=== PATIENT | male | born 1950 | race Caucasian/White ===

== ENCOUNTER 2017-03-20 06:13 | Day surgery (SDC) | payer MEDICAID, MEDICARE ==
[2017-03-20] MEDS ORDERED: Lactated Ringers 1,000 ML IV SCH (07:00)
[2017-03-20] MEDS ORDERED: ceFAZolin 2 GM in Premix Bag 1 BAG IV ONE (07:26)
[2017-03-20] MEDS ORDERED: fentaNYL 100 MCG/2 ML SDV ONE (07:40)
[2017-03-20] MEDS ORDERED: Midazolam 1 MG/ML 2 ML SDV ONE (07:40)
[2017-03-20] MEDS ORDERED: Propofol 200 MG/20 ML SDV ONE ×2 (07:40→08:09)
[2017-03-20 09:26] VITALS: BP 130/73
--- NOTE | 2017-03-20 12:51 | OR ---
DATE OF PROCEDURE: 03/20/2017 PREOPERATIVE DIAGNOSIS: History of adenomatous colon polyps. POSTOPERATIVE DIAGNOSIS: Small transverse and right colon polyps. PROCEDURE: Colonoscopy to the cecum with biopsy, resection of two small colon polyps. SURGEON: Justin Espinoza MD. ANESTHESIA: IV anesthesia with monitored anesthesia care. INDICATION: This 67-year-old white male is referred for colonoscopy because of a history of adenomatous colon polyps. He says his last colonoscopic exam was done three years ago. I counseled him for the procedure including risks and alternatives, and he gave his informed consent to proceed. DESCRIPTION OF PROCEDURE: The patient was placed in the left lateral decubitus position. IV anesthesia was administered by the Anesthesia Service. Time-out was held. A rectal exam was performed, which was unremarkable. The flexible video Olympus colonoscope was introduced through his anus, up his rectum, and out his colon all way to the cecum. To accomplish this, we had to apply abdominal compression in both the left lateral and supine positions. En route, in the transverse colon, we saw a small polyp, which was removed with the biopsy forceps. We saw another in the right colon, which was removed with the biopsy forceps. Once the cecum was reached, the scope was slowly withdrawn, examining the mucosa throughout. No additional mucosal abnormalities were noted. The scope was retroflexed in the rectum with the distal rectum appearing unremarkable. The scope was straightened and removed. He tolerated the procedure well. Justin Espinoza MD /[id number] MTDD
== END 2017-03-20 09:48 | disposition home or self-care (01) ==
LOC: JP.SDS 06:13
PROVIDERS: ATTEND Surgery
DX: Z12.11 Encounter for screening for malignant neoplasm of colon (principal); K63.5 Polyp of colon; F17.210 Nicotine dependence, cigarettes, uncomplicated; E66.9 Obesity, unspecified; M19.90 Unspecified osteoarthritis, unspecified site; Z98.890 Other specified postprocedural states; Z86.010 Personal history of colon polyps
CPT/HCPCS: 45380; 88305; J0690; J2250; J2704; J3010; J7120

== ENCOUNTER 2021-07-15 05:14 | Inpatient (IN) | payer MEDICARE ==
--- NOTE | 2021-07-15 06:05 | CRLCT ---
For Patients: As a result of the Century Cures Act, medical imaging exams and procedure reports are released immediately into your electronic medical record. You may view this report before your referring provider. If you have questions, please contact your health care provider. INDICATION: Epigastric pain, no bowel movement in 3 days TECHNIQUE: CT Abdomen and pelvis without i.v. contrast. Coronal and sagittal reformats were obtained. Iterative reconstruction was used to minimize beam hardening artifacts. COMPARISON: 05/24/2021 FINDINGS: Lower chest: Unremarkable. Liver: Multiple hepatic cysts present with the largest measuring 3.4 cm in diameter. Spleen: There is a nonspecific low-density lesion present within the spleen measuring 1.2 cm and may represent a splenic cyst, better characterized on prior examination. Pancreas: Unremarkable. Gallbladder: Unremarkable. Kidney: Unremarkable. No kidney or ureteral stones or obstruction seen. Adrenal: Unremarkable. Bowel: Small, stable sliding type gastric hiatal hernia (type IV) is present. There is a cluster of small bowel loops present in the right lower quadrant that have a new tethered, kinked appearance with radiating mesenteric vessels. The appendix is not identified. Vascular: Unremarkable. Lymph: Unremarkable. Peritoneum: Unremarkable. No pneumoperitoneum is seen. No significant ascites is noted. Pelvis: Unremarkable. Soft tissue: Unremarkable. Bone: The left bipolar hip prosthesis is noted. A severe chronic compression deformity of L1 is noted without interval change. IMPRESSION: 1. There is a cluster of small bowel loops present in the right lower quadrant that have a new tethered, kinked appearance with radiating mesenteric vessels. Findings are suggestive of a nonobstructing internal hernia. Dictated by Caesar Huddleston MD @ 07/15/2021 6:05:00 AM Please note that all CT scans at this facility use dose modulation, iterative reconstruction, and/or weight-based dosing when appropriate to reduce radiation dose to as low as reasonably achievable. Dictated by: Caesar Huddleston MD @ 07/15/2021 06:05:02 (Electronically Signed)
--- NOTE | 2021-07-15 06:40 | EDM.PDOC ---
ED HPI GENERAL MEDICAL PROBLEM - General Chief Complaint: Abdominal Pain Stated Complaint: BACK PAIN, NO BOWEL MOVEMENT Time Seen by Provider: 07/15/21 05:23 Source of Information: Reports: Patient, Family History Limitations: Reports: No Limitations - History of Present Illness INITIAL COMMENTS - FREE TEXT/NARRATIVE: Ángel is a 71-year-old male who presents to the ED with his daughter for evaluation of epigastric abdominal pain radiating through to the back that worsens with eating. The patient also reportedly has not had a bowel movement in over 3 days. He denies any nausea or vomiting, change in appetite, fever, chills. The patient has only had a previous abdominal surgery for a Sae fundoplication which was done years ago. The patient denies any loss of taste or smell, he does complain of pain radiating through to the back and denies any trauma that could be attributed to that. Abdomen Pain Score (Numeric/FACES): 8 - Related Data Allergies Allergy/AdvReac Type Severity Reaction Status Date / Time TAPE Allergy Unknown Blisters Uncoded 07/15/21 05:41 Home Meds: Home Meds Omeprazole 40 mg PO DAILY 05/13/15 [History] Acetaminophen/HYDROcodone [[place] 325-10 MG] 1 tab PO Q4H PRN 03/18/17 [History] Diclofenac Sodium [Voltaren] 75 mg PO BIDMEALS 03/18/17 [History] Sennosides/Docusate Sodium [Senna-S] 2 tab PO DAILY 03/18/17 [History] Past Medical History HEENT History: Reports: Impaired Vision Cardiovascular History: Reports: None Respiratory History: Reports: None Gastrointestinal History: Reports: Colon Polyp, Gastritis, GERD Genitourinary History: Reports: None Musculoskeletal History: Reports: Arthritis, Back Pain, Chronic, Fracture, Neck Pain, Chronic, Osteoarthritis, RA Neurological History: Reports: None Psychiatric History: Reports: None Endocrine/Metabolic History: Reports: Obesity/BMI 30+ Hematologic History: Reports: Anemia, Blood Transfusion(s), Iron Deficiency Immunologic History: Reports: None Oncologic (Cancer) History: Reports: None Dermatologic History: Reports: None - Infectious Disease History Infectious Disease History: Reports: Chicken Pox - Past Surgical History Head Surgeries/Procedures: Reports: None HEENT Surgical History: Reports: Oral Surgery Cardiovascular Surgical History: Reports: None Respiratory Surgical History: Reports: None GI Surgical History: Reports: Colonoscopy, EGD, Hernia, Abdominal Male Surgical History: Reports: None Endocrine Surgical History: Reports: None Neurological Surgical History: Reports: None Musculoskeletal Surgical History: Reports: Hip Replacement, Knee Replacement, Other (See Below) Other Musculoskeletal Surgeries/Procedures:: bilat knee L 2012 r knee06/2017 Oncologic Surgical History: Reports: None Dermatological Surgical History: Reports: None Social & Family History - Family History Family Medical History: No Pertinent Family History - Tobacco Use Tobacco Use Status *Q: Current Every Day Tobacco User Years of Tobacco use: 55 Packs/Tins Daily: 1 - Caffeine Use Caffeine Use: Reports: Coffee - Recreational Drug Use Recreational Drug Use: No ED ROS GENERAL - Review of Systems Review Of Systems: See Below Constitutional: Reports: No Symptoms HEENT: Reports: No Symptoms Respiratory: Reports: No Symptoms Cardiovascular: Reports: No Symptoms Endocrine: Reports: No Symptoms GI/Abdominal: Reports: Abdominal Pain (Epigastric rating through to the back), Constipation (No bowel movement in the last 3 days the patient has also been unable to sleep due to the abdominal pain and cramping.). Denies: Nausea, Vom iting : Reports: No Symptoms Musculoskeletal: Reports: Back Pain Skin: Reports: No Symptoms Neurological: Reports: No Symptoms Psychiatric: Reports: No Symptoms Hematologic/Lymphatic: Reports: No Symptoms ED EXAM, GI/ABD - Physical Exam Exam: See Below Exam Limited By: No Limitations General Appearance: Alert, Anxious, Mild Distress, Obese Eyes: Bilateral: EOMI Throat/Mouth: Normal Inspection, Normal Oropharynx, Normal Voice, No Airway Compromise Head: Atraumatic, Normocephalic Neck: Normal Inspection, Supple Respiratory/Chest: No Respiratory Distress, Lungs Clear, Normal Breath Sounds Cardiovascular: Normal Peripheral Pulses, Regular Rate, Rhythm, No Murmur GI/Abdominal Exam: Soft, Distended (Marked distention), Guarding, Tender (Epigastric moderate pain generalized mild to moderate pain), Abnormal Bowel Sounds (Diminished bowel sounds). No: Rebound Back Exam: Normal Inspection Extremities: Normal Inspection, Normal Range of Motion Neurological: Alert, Oriented, Normal Cognition, No Motor/Sensory Deficits Psychiatric: Normal Affect, Normal Mood Skin Exam: Warm, Dry Course - Vital Signs Last Recorded V/S: Last Vital Signs Temp 36.3 C 07/15/21 05:42 Pulse 82 07/15/21 05:42 Resp 14 07/15/21 05:42 BP 120/78 07/15/21 05:42 Pulse Ox 99 07/15/21 05:42 - Orders/Labs/Meds Labs: Laboratory Tests 07/15/21 07/15/21 07/15/21 Range/Units 05:34 05:45 05:45 WBC 3.8 L (4.5-11.0) K/uL RBC 5.09 (4.30-5.90) M/uL Hgb 13.7 (12.0-15.0) g/dL Hct 42.4 (40.0-54.0) % MCV 83 (80-98) fL MCH 27 (27-31) pg MCHC 32 (32-36) % Plt Count 174 (150-400) K/uL Neut % (Auto) 59.5 (36-66) % Lymph % (Auto) 26.8 (24-44) % [place] % (Auto) 13.2 H (2-6) % Eos % (Auto) 0.0 L (2-4) % Baso % (Auto) 0.5 (0-1) % Sodium 137 L (140-148) mmol/L Potassium 3.6 (3.6-5.2) mmol/L Chloride 102 (100-108) mmol/L Carbon Dioxide 25 (21-32) mmol/L Anion Gap 13.6 (5.0-14.0) mmol/L BUN 15 (7-18) mg/dL Creatinine 0.9 (0.8-1.3) mg/dL Est Cr Clr Drug Dosing 68.92 mL/min Estimated GFR (MDRD) > 60 (>60) Glucose 164 H (74-106) mg/dL Lactic Acid 1.4 (0.4-2.0) mmol/L Calcium 8.4 L (8.5-10.1) mg/dL Total Bilirubin 0.4 (0.2-1.0) mg/dL AST 24 (15-37) U/L ALT 24 (12-78) U/L Alkaline Phosphatase 74 (46-116) U/L Total Protein 6.6 (6.4-8.2) g/dL Albumin 3.5 (3.4-5.0) g/dL Globulin 3.1 (2.3-3.5) g/dL Albumin/Globulin Ratio 1.1 L (1.2-2.2) Lipase 114 (73-393) U/L - Radiology Interpretation Free Text/Narrative:: I reviewed the images of the CT of the abdomen without contrast, as well as the report. The report is as follows: FINDINGS: Lower chest: Unremarkable. Liver: Multiple hepatic cysts present with the largest measuring 3.4 cm in diameter. Spleen: There is a nonspecific low-density lesion present within the spleen measuring 1.2 cm and may represent a splenic cyst, better characterized on prior examination. Pancreas: Unremarkable. Gallbladder: Unremarkable. Kidney: Unremarkable. No kidney or ureteral stones or obstruction seen. Adrenal: Unremarkable. Bowel: Small, stable sliding type gastric hiatal hernia (type IV) is present. There is a cluster of small bowel loops present in the right lower quadrant that have a new tethered, kinked appearance with radiating mesenteric vessels. The appendix is not identified. Vascular: Unremarkable. Lymph: Unremarkable. Peritoneum: Unremarkable. No pneumoperitoneum is seen. No significant ascites is noted. Pelvis: Unremarkable. Soft tissue: Unremarkable. Bone: The left bipolar hip prosthesis is noted. A severe chronic compression deformity of L1 is noted without interval change. IMPRESSION: 1. There is a cluster of small bowel loops present in the right lower quadrant that have a new tethered, kinked appearance with radiating mesenteric vessels. Findings are suggestive of a nonobstructing internal hernia. Dictated by Caesar Huddleston MD @ 07/15/2021 6:05:00 AM - Re-Assessments/Exams Free Text/Narrative Re-Assessment/Exam: 07/15/21 06:34 I reviewed the patient's labs showing a normal leukocyte count of 3.8, hemoglobin of 13.7 and platelet count 174,000. The patient's comprehensive metabolic panel shows a sodium 137, potassium 3.6, chloride 102, bicarbonate of 25, BUN of 15 with a creatinine of 0.9 and a glucose of 164. Venous lactic acid is 1.4 and lipase is 114. Calcium is 8.4 with an albumin of 3.5. CT of the abdomen and pelvis was performed showing what appears to be a small cluster of small bowel in the right lower quadrant that is tethered with radiating mesenteric vessels consistent with an internal hernia that is nonobstructing. I discussed the case with Dr. Powell who recommends admission of the patient with an NG tube, bowel stimulation, and this will usually allow this to resolve. He recommended contacting the hospitalist to admit the patient for this care. I discussed the case with Dr. Remy to arrange for admission of the patient. 07/15/21 07:04 Dr. Powell called back and is planning on taking the patient to the operating room this morning. This was discussed with the patient who is in agreement with this plan. Departure - Departure Time of Disposition: 06:36 Disposition: Admitted As Inpatient 67 Clinical Impression: Partial small bowel obstruction, Malrotation of intestine with internal herniation - Discharge Information Referrals: Carlos Remy MD [Primary Care Provider] - Sepsis Event Note (ED) - Evaluation Sepsis Screening Result: No Definite Risk - Focused Exam Vital Signs: Vital Signs Temp Pulse Resp BP Pulse Ox 07/15/21 05:42 36.3 C 82 14 120/78 99 - Problem List & Annotations (1) Malrotation of intestine with internal herniation SNOMED Code(s): 005846004 Code(s): Q43.3 - CONGENITAL MALFORMATIONS OF INTESTINAL FIXATION; K46.9 - UNSPECIFIED ABDOMINAL HERNIA WITHOUT OBSTRUCTION OR GANGRENE Status: Acute Priority: Medium Current Visit: Yes (2) Partial small bowel obstruction SNOMED Code(s): 681140848 Code(s): K56.600 - PARTIAL INTESTINAL OBSTRUCTION, UNSPECIFIED TO CAUSE Status: Acute Priority: Medium Current Visit: Yes - Problem List Review Problem List Initiated/Reviewed/Updated: Yes
[2021-07-15] MEDS ORDERED: HYDROmorphone 1 MG/ML Syringe IVPUSH ONE (07:05)
[2021-07-15] MEDS ORDERED: Ondansetron 4 MG/2 ML SDV IVPUSH ONE (07:05)
[2021-07-15] MEDS ORDERED: Sodium Chloride 0.9% 10 ML Syringe FLUSH PRN (07:05)
[2021-07-15] MEDS ORDERED: Ondansetron 4 MG/2 ML SDV IV PRN (07:24)
[2021-07-15 07:28] LABS: CORONAVIRUS COVID-19 NAA POSITIVE (NEGATIVE)
--- NOTE | 2021-07-15 08:11 | HP ---
CHIEF COMPLAINT: Epigastric pain. HISTORY OF PRESENT ILLNESS: A 71-year-old who has had increasing epigastric discomfort over the last 3 days. He has maybe had a little bit of nausea, but no vomiting, but he has not really had much of an appetite, and it does not sound like he has really had much of a bowel movement. No urinary problems. Came into the emergency room. They did a CT scan, which showed cluster of small bowel loops present in the right lower quadrant that have new tethered kinked appearance with radiating mesenteric vessels. Findings are suggestive of nonobstructing internal hernia. Dr. Powell, General Surgery was contacted, who wanted me to admit the patient. They are planning on doing surgery this morning. The patient otherwise denies any other complaints at this time. He has had some lower chest pain probably radiating from the abdominal pain which also radiates into his back, but has had no shortness of breath or cough. He has had no fevers or chills. PAST MEDICAL HISTORY: 1. He had left shoulder arthroscopic surgery last spring. 2. Right total knee arthroplasty done in 2017. He has had a hip replacement with revision after fracture of the left hip. 3. Left total knee arthroplasty. 4. Seasonal allergies. 5. Longstanding smoker. 6. Right elbow surgery. 7. Right wrist and multiple right hand surgeries in the past. CURRENT MEDICATIONS: Hydrocodone, he is taking on a regular basis; diclofenac 75 mg b.i.d., omeprazole 40 mg daily, senna S 2 tablets daily. ALLERGIES: TAPE. SOCIAL HISTORY: Still smoking about a pack of cigarettes a day and has for 51 years with no desire to quit. FAMILY HISTORY: Brother with colon cancer. Mother with stomach cancer. REVIEW OF SYSTEMS: Denies headaches, vision changes, upper respiratory symptoms. No fever or chills. He does have some lower chest pain that may be radiating from the epigastric area. No shortness of breath, cough. A little bit of nausea without vomiting. No diarrhea. Has not really had much of a bowel movement and has had problems with constipation. No urinary problems reported. No swelling in his legs. No skin problems reported. No neurologic complaints reported. PHYSICAL EXAMINATION: VITAL SIGNS: Weight 97 kg, temperature 36.3, pulse 69 to 82, blood pressure 120/78, respirations 14, O2 saturation 99% on room air. GENERAL: The patient is alert and oriented x3. HEENT: Pharynx: No dentition, no dentures, was otherwise unremarkable. NECK: Supple. No adenopathy, thyromegaly, JVD, or carotid bruits. LUNGS: Clear. HEART: Regular without murmurs. ABDOMEN: Soft. He did have significant upper abdominal epigastric pain. There is no mass or organomegaly palpated. No distention. Few bowel sounds heard. EXTREMITIES: No edema. SKIN: Negative. NEUROLOGIC: Cranial nerves II through XII grossly intact. He is alert and oriented. Mental status was normal. LABORATORY DATA: Coronavirus disease 2019 was positive. Influenza and RSV were negative. White count 3.8, hemoglobin 13.7, platelets 174,000. Sodium 137, potassium 3.6, chloride 102, BUN is 15, creatinine 0.9, glucose 164. Lactic acid was normal at 1.4. Calcium was low at 8.4. Hepatic function was normal. Lipase was normal at 114. EKG is pending. CT scan showed the question of small bowel loops present in the right lower quadrant with new tethered, kinked appearance with radiating mesenteric vessels. Findings suggestive of nonobstructing internal hernia. ASSESSMENT: Internal hernia. PLAN: Plan is for him to have surgical repair of this by Dr. Powell this morning. ER doctor did order NG tube. The patient does have positive coronavirus disease but has no symptoms for it, just on routine testing. We will admit inpatient since he is having surgery. The patient has received IV Zofran and Dilaudid, which we will continue. N.p.o. with NG tube. Transfer his care to the hospitalist service also along with Dr. Powell. Carlos Remy MD /[id number]
[2021-07-15] MEDS: HYDROmorphone 1 MG/ML Syringe IVPUSH PRN ×2 (09:13→09:25)
[2021-07-15] MEDS: Sodium Chloride 0.9% 1,000 ML IV SCH ×2 (09:13→15:44)
[2021-07-15] MEDS ORDERED: fentaNYL 250 MCG/5 ML SDV ONE (09:14)
[2021-07-15] MEDS ORDERED: Glycopyrrolate 0.2 MG/ML 5 ML MDV ONE (09:15)
[2021-07-15] MEDS ORDERED: Propofol 200 MG/20 ML SDV ONE (09:15)
[2021-07-15] MEDS ORDERED: Dexamethasone 4 MG/ML SDV ONE (09:15)
[2021-07-15] MEDS ORDERED: Ondansetron 4 MG/2 ML SDV ONE (09:15)
[2021-07-15] MEDS ORDERED: Neostigmine Methylsulfate 1 MG/ML 5 ML Syringe ONE (09:15)
[2021-07-15] MEDS ORDERED: metroNIDAZOLE/Normal Saline 500 MG in Premix Bag 1 BAG IV ONE (09:15)
[2021-07-15] MEDS ORDERED: ceFAZolin 2 GM in Premix Bag 1 BAG IV ONE (09:15)
[2021-07-15] MEDS ORDERED: Rocuronium 50 MG/5 ML Vial ONE (09:15)
[2021-07-15] MEDS ORDERED: Albuterol/Ipratropium 3.0-0.5 MG/3 ML Neb Soln ONE (10:27)
[2021-07-15] MEDS ORDERED: Albuterol/Ipratropium 3.0-0.5 MG/3 ML Neb Soln NEB ONE (10:30)
[2021-07-15] MEDS ORDERED: diphenhydrAMINE 50 MG/ML SDV IVPUSH PRN (10:51)
[2021-07-15] MEDS ORDERED: Acetaminophen/HYDROcodone 325-10 MG Tab PO PRN (10:51)
[2021-07-15] MEDS ORDERED: Acetaminophen 325 MG Tab PO PRN (10:51)
[2021-07-15] MEDS ORDERED: hydrOXYzine HCL 100 MG/2 ML SDV IM PRN (10:51)
[2021-07-15] MEDS ORDERED: Docusate Sodium 100 MG Cap PO PRN (10:51)
[2021-07-15] MEDS ORDERED: Benzocaine/Cetylpyridinium/Menthol Lozenge MUCMEM PRN (10:51)
[2021-07-15] MEDS ORDERED: Promethazine 25 MG/ML SDV IM PRN (10:51)
[2021-07-15] MEDS ORDERED: fentaNYL 100 MCG/2 ML SDV IVPUSH PRN (10:54)
[2021-07-15] MEDS ORDERED: ceFAZolin 2 GM in Sodium Chloride 0.9% 100 ML IV SCH (11:00)
[2021-07-15] MEDS ORDERED: Bupivacaine 0.5%/EPINEPHrine 1:200,000 50 ML MDV ONE (11:52)
[2021-07-15] MEDS: Enoxaparin 40 MG/0.4 ML Syringe SUBCUT SCH (14:13)
[2021-07-15] MEDS: ceFAZolin 2 GM in Premix Bag 1 BAG IV SCH (17:20)
--- NOTE | 2021-07-15 19:11 | CONS ---
DATE OF SERVICE: 07/15/2021 REFERRING PHYSICIAN: CONSULTING PHYSICIAN: Elder Powell MD Consult from Dr. Baxter. REASON FOR CONSULTATION: Abdominal pain. HISTORY OF PRESENT ILLNESS: A 71-year-old male, who presents with an approximately 3-day history of abdominal pain. No nausea, vomiting, shortness of breath, or chest pain. The pain is 1 to 2 on 10 and intermittent. PAST MEDICAL HISTORY: Gastritis, GERD, arthritis, back pain, and multiple orthopedic things with respect to chronic neck pains, fracture, etc. PAST SURGICAL HISTORY: Colonoscopy and hernia repair. SOCIAL HISTORY: He is a smoker. FAMILY HISTORY: Noncontributory. REVIEW OF SYSTEMS: GENERAL: Appropriate for condition. HEENT: No symptoms. RESPIRATORY: Smoker. CARDIOVASCULAR: Smoker. GI: As above. GENITOURINARY: No symptoms. MUSCULOSKELETAL: Chronic back pain. The remainder of the review of systems is reviewed and is negative. PHYSICAL EXAMINATION: GENERAL: The patient is appropriate for condition. VITAL SIGNS: Stable; temperature 97.3, blood pressure 120/78, pulse 82, respirations 14, and 99% on room air. HEENT: Pupils are equal. NECK: Supple. LUNGS: Clear. CARDIOVASCULAR: Regular rhythm and rate. ABDOMEN: Moderately distended. Nontender. No rebound. No guarding. IMAGING: I did review the CT scan, which suggests possibly an internal hernia. ASSESSMENT AND PLAN: To the operating room for a diagnostic laparoscopy. We discussed the risks, benefits, alternatives, and limitations, including possible bowel resection and open surgery. We also discussed that he is a smoker and coronavirus disease positive, and he may get respiratory complications along with other surgical complications, which include respiratory failure and even . The patient was ambivalent about these risks, and they were again repeated a 2nd time to ensure that he understands the seriousness of the situation. He states that he does. These risks, benefits, and alternatives were reiterated twice in clear simple Malay using "layman's terms." Elder Powell MD /[id number]
[2021-07-16] MEDS: Sodium Chloride 0.9% 1,000 ML IV SCH (00:32)
[2021-07-16] MEDS: ceFAZolin 2 GM in Premix Bag 1 BAG IV SCH (00:33)
[2021-07-16] MEDS ORDERED: Polyethylene Glycol 3350 Powder 17 GM Packet PO ONE (09:45)
--- NOTE | 2021-07-16 13:30 | PCM.PN ---
- General Info Date of Service: 07/16/21 Subjective Update: Mr. Quezada has been stable following surgery for repair of incarcerated hernia. Hospitalist service has been asked to follow him because of positive Covid test. He currently has no symptoms of active Covid. Functional Status: Reports: Pain Controlled, Ambulating - Review of Systems General: Reports: No Symptoms Pulmonary: Reports: No Symptoms Cardiovascular: Reports: No Symptoms Gastrointestinal: Reports: Abdominal Pain, Flatus. Denies: Difficulty Swallowing, Hematochezia, Melena, Nausea, Vomiting - Patient Data Vitals - Most Recent: Last Vital Signs Temp 96.2 F L 07/16/21 11:24 Pulse 58 L 07/16/21 11:24 Resp 18 07/16/21 11:24 BP 113/81 07/16/21 11:24 Pulse Ox 98 07/16/21 11:24 Weight - Most Recent: 214 lb 3.2 oz I&O - Last 24 Hours: Intake & Output 07/15/21 07/16/21 07/16/21 22:59 06:59 14:59 Intake Total 1355 1356 760 Output Total 3250 1250 850 Balance -1895 106 -90 Lab Results Last 24 Hours: Laboratory Results - last 24 hr 07/16/21 07/16/21 Range/Units 04:50 04:50 WBC 4.3 L (4.5-11.0) K/uL RBC 4.69 (4.30-5.90) M/uL Hgb 12.7 (12.0-15.0) g/dL Hct 39.9 L (40.0-54.0) % MCV 85 (80-98) fL MCH 27 (27-31) pg MCHC 32 (32-36) % Plt Count 143 L (150-400) K/uL Neut % (Auto) 72.8 H (36-66) % Lymph % (Auto) 17.2 L (24-44) % [place] % (Auto) 10.0 H (2-6) % Eos % (Auto) 0.0 L (2-4) % Baso % (Auto) 0.0 (0-1) % Sodium 140 (140-148) mmol/L Potassium 4.2 (3.6-5.2) mmol/L Chloride 106 (100-108) mmol/L Carbon Dioxide 25 (21-32) mmol/L Anion Gap 9.4 (5.0-14.0) mmol/L BUN 10 (7-18) mg/dL Creatinine 0.9 (0.8-1.3) mg/dL Est Cr Clr Drug Dosing 68.92 mL/min Estimated GFR (MDRD) > 60 (>60) Glucose 131 H (74-106) mg/dL Calcium 7.9 L (8.5-10.1) mg/dL Med Orders - Current: Current Medications Acetaminophen (Acetaminophen 325 Mg Tab) 650 mg PO Q6H PRN PRN Reason: Pain (mild 1-3) Hydrocodone Bitart/Acetaminophen (Acetaminophen/Hydrocodone 325-10 Mg Tab) 2 tab PO Q4H PRN PRN Reason: Pain (severe 7-10) Alvimopan (Alvimopan 12 Mg Capsule) 12 mg PO BID [facility] Stop: 07/22/21 21:01 Last Admin: 07/16/21 11:21 Dose: 12 mg Documented by: Benzocaine/Menthol (Benzocaine/Cetylpyridinium/Menthol Lozenge) 1 lozenge MUCMEM Q1H PRN PRN Reason: Sore Throat Diphenhydramine HCl (Diphenhydramine 50 Mg/Ml Sdv) 50 mg IVPUSH Q4H PRN PRN Reason: Itching Docusate Sodium (Docusate Sodium 100 Mg Cap) 100 mg PO BID PRN PRN Reason: Constipation Last Admin: 07/16/21 08:19 Dose: 100 mg Documented by: Enoxaparin Sodium (Enoxaparin 40 Mg/0.4 Ml Syringe) 40 mg SUBCUT Q24H TOMAS Last Admin: 07/15/21 14:13 Dose: 40 mg Documented by: Fentanyl (Fentanyl 100 Mcg/2 Ml Sdv) 10 - 30 mcg IVPUSH Q1H PRN PRN Reason: Pain (severe 7-10) Hydromorphone HCl (Hydromorphone 1 Mg/Ml Syringe) 1 mg IVPUSH Q1H PRN PRN Reason: Pain Last Admin: 07/15/21 09:25 Dose: 1 mg Documented by: Hydroxyzine HCl (Hydroxyzine Hcl 100 Mg/2 Ml Sdv) 50 mg IM Q4H PRN PRN Reason: Nausea Sodium Chloride (Normal Saline) 1,000 mls @ 125 mls/hr IV ASDIRECTED [facility] Last Admin: 07/16/21 00:32 Dose: 125 mls/hr Documented by: Ondansetron HCl (Ondansetron 4 Mg/2 Ml Sdv) 4 mg IV Q4H PRN PRN Reason: Nausea/Vomiting Promethazine HCl (Promethazine 25 Mg/Ml Sdv) 25 mg IM Q6H PRN PRN Reason: Nausea Senna/Docusate Sodium (Docusate Sodium/Sennosides 50-8.6 Mg Tab) 1 tab PO BID PRN PRN Reason: Constipation Last Admin: 07/16/21 08:18 Dose: 1 tab Documented by: Sodium Chloride (Sodium Chloride 0.9% 10 Ml Syringe) 10 ml FLUSH ASDIRECTED PRN PRN Reason: Keep Vein Open Last Admin: 07/15/21 07:16 Dose: 10 ml Documented by: Discontinued Medications Albuterol/Ipratropium (Albuterol/Ipratropium 3.0-0.5 Mg/3 Ml Neb Soln) Confirm Administered Dose 3 ml .ROUTE .STK-MED ONE Stop: 07/15/21 10:28 Last Admin: 07/15/21 10:31 Dose: Not Given Documented by: Albuterol/Ipratropium (Albuterol/Ipratropium 3.0-0.5 Mg/3 Ml Neb Soln) 3 ml NEB ONETIME ONE Stop: 07/15/21 10:31 Last Admin: 07/15/21 10:33 Dose: 3 ml Documented by: Bupivacaine HCl/Epinephrine Bitart (Bupivacaine 0.5%/Epinephrine 1:200,000 50 Ml Mdv) Confirm Administered Dose 50 ml .ROUTE .STK-MED ONE Stop: 07/15/21 11:53 Last Admin: 07/15/21 11:35 Dose: 30 ml Documented by: Ropivacaine 48 ml/Dexamethasone 8 mg/Epinephrine HCl 0.4 mg/ Sodium Chloride 29.6 ml 0 ml NERVRT ASDIRECTED [facility] Last Admin: 07/15/21 11:28 Dose: 80 syringe Documented by: Dexamethasone (Dexamethasone 4 Mg/Ml Sdv) Confirm Administered Dose 4 mg .ROUTE .STK-MED ONE Stop: 07/15/21 09:16 Fentanyl (Fentanyl 250 Mcg/5 Ml Sdv) Confirm Administered Dose 250 mcg .ROUTE .STK-MED ONE Stop: 07/15/21 09:15 Glycopyrrolate (Glycopyrrolate 0.2 Mg/Ml 5 Ml Mdv) Confirm Administered Dose 1 mg .ROUTE .STK-MED ONE Stop: 07/15/21 09:16 Hydromorphone HCl (Hydromorphone 1 Mg/Ml Syringe) 1 mg IVPUSH ONETIME ONE Stop: 07/15/21 07:06 Last Admin: 07/15/21 07:16 Dose: 1 mg Documented by: Cefazolin Sodium/Dextrose 2 gm (/ Premix) 50 mls @ 100 mls/hr IV ONETIME ONE Stop: 07/15/21 09:44 Last Admin: 07/15/21 09:28 Dose: 100 mls/hr Documented by: Metronidazole 500 mg/ Premix 100 mls @ 100 mls/hr IV ONETIME ONE Stop: 07/15/21 10:14 Last Admin: 07/15/21 10:03 Dose: 100 mls/hr Documented by: Cefazolin Sodium/Dextrose 2 gm (/ Premix) 50 mls @ 100 mls/hr IV Q8H [facility]OMAS Stop: 07/16/21 01:29 Last Admin: 07/16/21 00:33 Dose: 100 mls/hr Documented by: Neostigmine Methylsulfate (Neostigmine Methylsulfate 1 Mg/Ml 5 Ml Syringe) Confirm Administered Dose 5 mg .ROUTE .STK-MED ONE Stop: 07/15/21 09:16 Ondansetron HCl (Ondansetron 4 Mg/2 Ml Sdv) 4 mg IVPUSH ONETIME ONE Stop: 07/15/21 07:06 Last Admin: 07/15/21 07:15 Dose: 4 mg Documented by: Ondansetron HCl (Ondansetron 4 Mg/2 Ml Sdv) Confirm Administered Dose 4 mg .ROUTE .STK-MED ONE Stop: 07/15/21 09:16 Polyethylene Glycol (Polyethylene Glycol 3350 Powder 17 Gm Packet) 17 gm PO ON ETIME ONE Stop: 07/16/21 09:46 Last Admin: 07/16/21 10:03 Dose: 17 gm Documented by: Propofol (Propofol 200 Mg/20 Ml Sdv) Confirm Administered Dose 200 mg .ROUTE .STK-MED ONE Stop: 07/15/21 09:16 Rocuronium [place] (Rocuronium 50 Mg/5 Ml Vial) Confirm Administered Dose 50 mg .ROUTE .[facility] ONE Stop: 07/15/21 09:16 - Exam Urinary Catheter Total Time: 0Days 21Hours General: Alert, Oriented, Cooperative, Mild Distress Lungs: Clear to Auscultation, Normal Respiratory Effort Cardiovascular: Regular Rate, Regular Rhythm GI/Abdominal Exam: Normal Bowel Sounds, Soft, No Organomegaly, Tender. No: Distended, Guarding, Rigid, Rebound Extremities: Non-Tender, No Pedal Edema - Patient Data Lab Results Last 24 hrs: Laboratory Results - last 24 hr 07/16/21 07/16/21 Range/Units 04:50 04:50 WBC 4.3 L (4.5-11.0) K/uL RBC 4.69 (4.30-5.90) M/uL Hgb 12.7 (12.0-15.0) g/dL Hct 39.9 L (40.0-54.0) % MCV 85 (80-98) fL MCH 27 (27-31) pg MCHC 32 (32-36) % Plt Count 143 L (150-400) K/uL Neut % (Auto) 72.8 H (36-66) % Lymph % (Auto) 17.2 L (24-44) % [place] % (Auto) 10.0 H (2-6) % Eos % (Auto) 0.0 L (2-4) % Baso % (Auto) 0.0 (0-1) % Sodium 140 (140-148) mmol/L Potassium 4.2 (3.6-5.2) mmol/L Chloride 106 (100-108) mmol/L Carbon Dioxide 25 (21-32) mmol/L Anion Gap 9.4 (5.0-14.0) mmol/L BUN 10 (7-18) mg/dL Creatinine 0.9 (0.8-1.3) mg/dL Est Cr Clr Drug Dosing 68.92 mL/min Estimated GFR (MDRD) > 60 (>60) Glucose 131 H (74-106) mg/dL Calcium 7.9 L (8.5-10.1) mg/dL Result Diagrams: 07/16/21 04:50 07/16/21 04:50 Sepsis Event Note - Evaluation Sepsis Screening Result: No Definite Risk - Focused Exam Vital Signs: Vital Signs Temp Pulse Resp BP Pulse Ox 07/16/21 11:24 96.2 F L 58 L 18 113/81 98 07/16/21 07:14 96.4 F L 58 L 18 116/77 95 07/16/21 04:00 96.8 F L 56 L 14 121/76 95 - Problem List Review Problem List Initiated/Reviewed/Updated: Yes - Plan Plan:: ASSESSMENT AND PLAN STATUS POST SURGERY FOR INCARCERATED HERNIA-stable and doing well during the postoperative course -Ongoing care and management per Dr. Powell COVID POSITIVE-positive test on admission, remains asymptomatic concerning Covid infection -Does not currently require specific treatment
--- NOTE | 2021-07-16 13:43 | OR ---
DATE OF PROCEDURE: 07/15/2021 SURGEON: Elder Powell MD PROCEDURES: 1. Diagnostic laparoscopy. 2. Repair of internal hernia. 3. Lysis of adhesions. COMPLICATIONS: None. CHARGING MACHINE OPERATOR: None. ANESTHESIA: General. PREOPERATIVE DIAGNOSIS: Internal hernia. POSTOPERATIVE DIAGNOSIS: Internal hernia. RISKS: Risks, benefits, alternatives, and limitations including but not limited to infection, bleeding, injury to abdominal structures, requirement for reoperation, chronic wounds, chronic pain, possible open surgery, and the serious sequelae associated with being COVID positive at all explained to the patient who wished to proceed. PROCEDURE IN DETAIL: The patient was placed in supine position. A supraumbilical curvilinear incision was made. A Veress needle was used to enter the abdomen without abnormality. A drop test was performed without abnormality. The abdomen was subsequently insufflated. This was followed by an Optiview trocar. No evidence of injury or enterotomy was noted. An additional 10 and a 5 mm ports will be entered under direct visualization. The CT scan showed the issue was in the right lower quadrant. There was omentum with adhesion associated with the loop of small bowel. This was broken down using blunt and sharp dissection. Of note, no energy source was used during this procedure. The bowel was then found at the junction of the cecum. Photo was taken of this. This was then ran in a retrograde fashion to the ligament of Treitz. No other abnormalities were noted. This was then ran in an antegrade fashion. Again, no other abnormalities were noted. No evidence of enterotomy or injury. No old or new blood. No significant fluid collections. The bowel itself appeared viable without any evidence of ischemia or areas of concern. The bowel itself was not significantly dilated. The air was removed. The wounds were closed with 3-0 Vicryl and 4-0 Vicryl in an interrupted running fashion. Dermabond was applied. The patient tolerated the procedure well. Elder Powell MD /[id number]
--- NOTE | 2021-07-16 13:46 | OR ---
DATE OF PROCEDURE: 07/15/2021 SURGEON: Elder Powell MD PROCEDURES: 1. Transversus plane block bilaterally. 2. Rectus sheath block bilaterally. COMPLICATIONS: None. DESIGN CELL ENGINEER: None. RISKS: Risks, benefits, alternatives, and limitations including, but not limited to, infection, bleeding, injury to abdominal structures were explained to the patient, and they wished to proceed. PROCEDURE IN DETAIL: The patient was placed supine position. The left transversus plane was identified first. This was accessed using a 21-gauge needle. 20% of the solution was injected. The other side was then performed in the same manner. Bilateral rectus sheaths were then injected, both under direct visualization. These were also performed in same manner, same fashion, same technique, same sequence using the same equipment. At no point was the needle blindly advanced nor advanced past the peritoneum. The patient tolerated the procedure well. Elder Powell MD /[id number]
--- NOTE | 2021-07-16 13:46 | PN ---
DATE OF SERVICE: 07/16/2021 SUBJECTIVE: The patient is doing well today. Pain is well controlled. No nausea, vomiting, shortness of breath, or chest pain. He is starting to pass some gas. No significant GI activity. OBJECTIVE: VITAL SIGNS: Stable. CARDIOVASCULAR: Regular rhythm and rate. RESPIRATORY: Lungs clear to auscultation bilaterally. SKIN: Incisions healing well. ASSESSMENT: Status post diagnostic laparoscopy for repair of internal hernia. PLAN: General. We will keep him on clear liquids until his GI activity increases. We will continue to keep him on coronavirus disease isolation protocols with aggressive respiratory therapy. Hospitalist continue to generally manage specific medicine issues. Elder Powell MD /[id number]
[2021-07-16] MEDS: Enoxaparin 40 MG/0.4 ML Syringe SUBCUT SCH (14:17)
[2021-07-16] MEDS: Dorzolamide 2% Ophth Soln 10 ML Bottle EYEBOTH SCH (20:40)
[2021-07-17] MEDS ORDERED: Timolol Maleate 0.5% Ophth Soln 5 ML Bottle EYEBOTH SCH (09:00)
[2021-07-17] MEDS: Dorzolamide 2% Ophth Soln 10 ML Bottle EYEBOTH SCH (09:12)
[2021-07-17 10:15] VITALS: BP 127/67; PULSE 66
--- NOTE | 2021-07-17 10:24 | CR ---
CHEST: 2 view CLINICAL HISTORY:Covid COMPARISON:None FINDINGS: Heart size and pulmonary vascular normal. There is a large lateral hernia. There is diffuse prominence of the interstitial markings. No consolidation is identified. Impression: Diffuse prominence in a predominantly interstitial pattern. This may represent pneumonitis Ashlie hernia
--- NOTE | 2021-07-17 13:56 | DISCH ---
DISCHARGE DIAGNOSIS: Status post repair of internal hernia. SUMMARY OF HOSPITAL COURSE: Pleasant gentleman who underwent a laparoscopic repair of internal hernia. Prior to discharge, his pain was well controlled. No nausea or shortness of breath or chest pain. The patient did very well. No specific concerns. Follow up with Surgery in 7 to 14 days. ACTIVITY: No lifting greater than 30 pounds x30 days. With respect to his positive COVID test, Internal Medicine will discuss quarantine with him. /[id number]
--- NOTE | 2021-07-17 13:56 | PN ---
DATE OF SERVICE: 07/17/2021 SUBJECTIVE: The patient is doing well. Pain is well controlled. No nausea, vomiting, shortness of breath, or chest pain. He is having multiple bowel movements. OBJECTIVE: VITAL SIGNS: Stable. Afebrile. ABDOMEN: Incision is healing well. Very small amount of erythema on the midline incision. However, the patient states he has scrubbed it hard in the shower. ASSESSMENT: Status post repair of internal hernia. PLAN: He will be discharged today. Please see discharge summary for further details. Elder Powell MD /[id number]
--- NOTE | 2021-07-17 14:33 | PCM.EKG ---
#1 Interpretation EKG Date: 07/15/21 Time: 07:45 Rhythm: NSR Rate (Beats/Min): 66 [place]: LAD-Left [place] Deviation P-Wave: Present QRS: Normal ST-T: Normal QT: Normal Comparison: NA - No Prior EKG
== END 2021-07-17 13:10 | disposition home or self-care (01) | DRG 353 ==
LOC: JP.ED 05:14 → JP.SDS 07:01 → JP.ICU 12:45 → JP.2SS 07-16 16:40
PROVIDERS: ADMIT Surgery; ATTEND Surgery
PROC: 0WQF4ZZ Repair Abdominal Wall, Percutaneous Endoscopic Approach (ICD-10-PCS; principal; 2021-07-15)
PROC: 8E0ZXY6 Isolation (ICD-10-PCS; 2021-07-15)
DX: K56.600 Partial intestinal obstruction, unspecified as to cause (principal); Q43.3 Congenital malformations of intestinal fixation; K46.0 Unspecified abdominal hernia with obstruction, without gangrene; U07.1 COVID-19; J30.2 Other seasonal allergic rhinitis; Z96.653 Presence of artificial knee joint, bilateral; Z79.899 Other long term (current) drug therapy; Z91.048 Other nonmedicinal substance allergy status; K46.9 Unspecified abdominal hernia without obstruction or gangrene; F17.210 Nicotine dependence, cigarettes, uncomplicated; K21.9 Gastro-esophageal reflux disease without esophagitis; D64.9 Anemia, unspecified; Z98.890 Other specified postprocedural states
CPT/HCPCS: 0241U; 36415; 44238; 71046; 74176; 80048; 80053; 83605; 83690; 85025; 93005; 96365; 96367; 96375; 96376; 99285-25; A9270-GY; J0171; J0690; J1100; J1170; J1650; J2405; J2704; J2710; J2795; J3010; J3490; J7030; J7620-GY

== ENCOUNTER 2024-05-29 21:18 | Inpatient (IN) | payer MEDICARE ==
[2024-05-29] MEDS: HYDROmorphone 0.5 MG/0.5 ML Syringe IVPUSH ONE (22:03)
[2024-05-29] MEDS: Ondansetron 4 MG/2 ML SDV IVPUSH ONE (22:03)
[2024-05-29] MEDS: Sodium Chloride 0.9% 500 ML IV ONE (22:04)
[2024-05-29 22:06] LABS: BASOPHILS ABSOLUTE AUTO 0.03 K/uL (0.00-0.10); BASOPHILS PERCENT AUTO 0.3 % (0.1-1.3); EOSINOPHILS ABSOLUTE AUTO 0.05 K/uL (0.00-0.40); EOSINOPHILS PERCENT AUTO 0.5 % (0.0-5.4); HEMATOCRIT 47.3 % (38.4-49.7); IMMATURE GRAN ABSOLUTE AUTO 0.05 K/uL (0.00-0.23); IMMATURE GRAN PERCENT AUTO 0.5 % (0.0-0.7); LYMPHOCYTES ABSOLUTE AUTO 1.25 K/uL (0.8-3.3); LYMPHOCYTES PERCENT AUTO 11.4 % (11.4-47.7); MEAN CORPUSCULAR HEMOGLOBIN 30.2 pg (31.6-35.5); MEAN CORPUSCULAR HGB CONC 33.8 g/dL (31.6-35.5); MEAN CORPUSCULAR VOLUME 89.4 fL (81.4-99.0); MONOCYTES ABSOLUTE AUTO 0.62 K/uL (0.20-0.90); MONOCYTES PERCENT AUTO 5.7 % (3.3-12.6); NEUTROPHILS ABSOLUTE AUTO 8.97 K/uL (1.0-7.6); NEUTROPHILS PERCENT AUTO 81.6 % (40.0-78.1); PLATELET COUNT,PLT 200 K/uL (130-375); RED BLOOD CELL COUNT 5.29 M/uL (4.14-5.76)
[2024-05-29 23:02] LABS: A/G RATIO 1.1 (1.2-2.2); ALANINE AMINOTRANSFERASE,ALT 26 U/L (12-78); ALBUMIN 4.1 g/dL (3.4-5.0); ALKALINE PHOSPHATASE 95 U/L (46-116); ANION GAP 13.2 mmol/L (5.0-14.0); ASPARTATE AMNIOTRANSFERASE,AST 26 U/L (15-37); BILIRUBIN TOTAL 0.6 mg/dL (0.2-1.0); BLOOD UREA NITROGEN,BUN 18 mg/dL (7-18); CALCIUM 10.4 mg/dL (8.5-10.1); CARBON DIOXIDE,CO2 25 mmol/L (21-32); CHLORIDE,CL 102 mmol/L (100-108); CREATININE 1.3 mg/dL (0.8-1.3); ESTIMATED GFR 58 mL/min (>60); GLUCOSE RANDOM 141 mg/dL (74-106); POTASSIUM,K 3.9 mmol/L (3.6-5.2); PROTEIN TOTAL,TP 7.8 g/dL (6.4-8.2); SODIUM,NA 140 mmol/L (140-148)
[2024-05-30] MEDS: Lidocaine 4% Top Soln 50 ML Bottle MUCMEM ONE (00:08)
[2024-05-30] MEDS ORDERED: Albuterol 0.083% 2.5 MG/3 ML Neb Soln NEB PRN (00:08)
[2024-05-30] MEDS ORDERED: Naloxone 0.4 MG/ML SDV IVPUSH PRN (00:08)
[2024-05-30] MEDS ORDERED: HYDROmorphone 0.5 MG/0.5 ML Syringe IVPUSH PRN (00:08)
[2024-05-30] MEDS: Sodium Chloride 0.9% 1,000 ML IV SCH (00:36)
[2024-05-30] MEDS: LORazepam 2 MG/ML SDV IVPUSH PRN (00:46)
[2024-05-30 04:51] LABS: BASOPHILS PERCENT AUTO 0.2 % (0.1-1.3); EOSINOPHILS PERCENT AUTO 0.1 % (0.0-5.4); HEMATOCRIT 43.8 % (38.4-49.7); HEMOGLOBIN 14.7 g/dL (12.9-16.9); IMMATURE GRAN ABSOLUTE AUTO 0.04 K/uL (0.00-0.23); IMMATURE GRAN PERCENT AUTO 0.5 % (0.0-0.7); LYMPHOCYTES ABSOLUTE AUTO 0.73 K/uL (0.8-3.3); MEAN CORPUSCULAR HEMOGLOBIN 30.1 pg (31.6-35.5); MEAN CORPUSCULAR HGB CONC 33.6 g/dL (31.6-35.5); MEAN CORPUSCULAR VOLUME 89.8 fL (81.4-99.0); MONOCYTES ABSOLUTE AUTO 0.39 K/uL (0.20-0.90); MONOCYTES PERCENT AUTO 4.8 % (3.3-12.6); NEUTROPHILS ABSOLUTE AUTO 6.96 K/uL (1.0-7.6); NEUTROPHILS PERCENT AUTO 85.4 % (40.0-78.1); PLATELET COUNT,PLT 180 K/uL (130-375); RED BLOOD CELL COUNT 4.88 M/uL (4.14-5.76); WHITE BLOOD CELL COUNT,WBC 8.2 K/uL (3.2-11.0)
[2024-05-30 05:09] LABS: AMORPHOUS SEDIMENT,URINE NOT SEEN; APPEARANCE,URINE SLIGHTLY CLOUDY (CLEAR); BACTERIA,URINE FEW; BILIRUBIN,URINE SMALL (NEGATIVE); COLOR,URINE YELLOW (YELLOW); EPITHELIAL CELLS,URINE RARE; GLUCOSE,URINE NEGATIVE (NEGATIVE); KETONES,URINE NEGATIVE (NEGATIVE); LEUKOCYTE ESTERASE,URINE NEGATIVE (NEGATIVE); MUCUS,URINE MANY; NITRITE,URINE NEGATIVE (NEGATIVE); OCCULT BLOOD,URINE NEGATIVE (NEGATIVE); PH,URINE 5.5 (5.0-8.0); PROTEIN,URINE 30 mg/dL (NEGATIVE); RBC,URINE 0-5 (0-5); WBC,URINE 0-5 (0-5)
[2024-05-30 05:10] LABS: BASOPHILS ABSOLUTE AUTO 0.02 K/uL (0.00-0.10); EOSINOPHILS ABSOLUTE AUTO 0.01 K/uL (0.00-0.40)
[2024-05-30 05:12] LABS: CALCIUM 9.4 mg/dL (8.5-10.1); CREATININE 1.1 mg/dL (0.8-1.3); EST CRCL DRUG DOSING (CG) 53.97 mL/min; POTASSIUM,K 4.6 mmol/L (3.6-5.2)
[2024-05-30 05:13] LABS: ANION GAP 13.6 mmol/L (5.0-14.0)
[2024-05-30] MEDS: Pantoprazole 40 MG Vial IVPUSH SCH (09:16)
[2024-05-30] MEDS: Ondansetron 4 MG/2 ML SDV IV PRN (10:13)
[2024-05-30] MEDS: Timolol Maleate 0.25% Ophth Soln 5 ML Bottle EYEBOTH SCH (11:02)
[2024-05-30] MEDS: Dorzolamide 2% Ophth Soln 10 ML Bottle EYEBOTH SCH (11:03)
[2024-05-30] MEDS: Diatrizoate Meglumine/Diatrizoate Sodium 37% 120 ML Bottle PO SCH (11:03)
[2024-05-31] MEDS: Pantoprazole 40 MG Tab.CR PO SCH (08:43)
[2024-05-31] MEDS ORDERED: Sodium Chloride 0.9% 1,000 ML IV SCH (11:30)
[2024-05-31 13:30] VITALS: BP 101/57; PULSE 69
== END 2024-05-31 13:50 | disposition home or self-care (01) | DRG 390 ==
LOC: JP.ED 21:18 → JP.ICU 23:25
PROVIDERS: ADMIT Internal Medicine; ATTEND Internal Medicine
PROC: 0D9670Z Drainage of Stomach with Drainage Device, Via Natural or Artificial Opening (ICD-10-PCS; principal; 2024-05-29)
DX: K56.609 Unspecified intestinal obstruction, unspecified as to partial versus complete obstruction (principal); K56.50 Intestinal adhesions [bands], unspecified as to partial versus complete obstruction; K21.9 Gastro-esophageal reflux disease without esophagitis; E66.9 Obesity, unspecified; M19.90 Unspecified osteoarthritis, unspecified site; M54.9 Dorsalgia, unspecified; G89.29 Other chronic pain; M06.9 Rheumatoid arthritis, unspecified; H54.7 Unspecified visual loss; F17.200 Nicotine dependence, unspecified, uncomplicated; Z96.653 Presence of artificial knee joint, bilateral; Z96.642 Presence of left artificial hip joint; Z91.048 Other nonmedicinal substance allergy status; H40.9 Unspecified glaucoma; Z86.0100 Personal history of colon polyps, unspecified; Z87.81 Personal history of (healed) traumatic fracture; Z68.33 Body mass index [BMI] 33.0-33.9, adult; Z98.49 Cataract extraction status, unspecified eye; Z98.890 Other specified postprocedural states; Z79.899 Other long term (current) drug therapy
CPT/HCPCS: 36415; 74176; 80053; 82150; 83605; 83690; 85025; 96374; 96375; 99284; 99285; J1171; J2405; J7040; 71045; 71045-26; 74018; 74018-26; 74019; 74019-26; 80048; 81001; 99222; 99232; 99238; A9270-GY; J2060; J2470; J7030; Q9963

== ENCOUNTER 2025-01-25 07:32 | Day surgery (SDC) | payer MEDICARE ==
[~2025-01-25 07:32] MED LIST: Lactated Ringers 1,000 ML IV SCH; Propofol 200 MG/20 ML SDV ONE; fentaNYL 50 MCG/ML SDV ONE
[2025-01-25] MEDS: Lactated Ringers 1,000 ML IV SCH (07:59)
[2025-01-25] MEDS ORDERED: Propofol 200 MG/20 ML SDV ONE (09:09)
[2025-01-25 10:36] VITALS: BP 128/97; PULSE 65
== END 2025-01-25 10:50 | disposition home or self-care (01) ==
LOC: JP.SDS 07:32
PROVIDERS: ATTEND Surgery
DX: Z12.11 Encounter for screening for malignant neoplasm of colon (principal); D12.2 Benign neoplasm of ascending colon; K31.89 Other diseases of stomach and duodenum; K31.A0 Gastric intestinal metaplasia, unspecified; R13.10 Dysphagia, unspecified; F17.200 Nicotine dependence, unspecified, uncomplicated
CPT/HCPCS: 00813; 43239; 45380; 88305; J2704; J3010; J7120

== ENCOUNTER 2025-04-04 10:53 | Emergency (ER) | payer MEDICARE ==
[2025-04-04] MEDS: Ondansetron 4 MG/2 ML SDV IVPUSH ONE (11:47)
[2025-04-04] MEDS: Sodium Chloride 0.9% 10 ML Syringe FLUSH ONE (11:48)
[2025-04-04 11:50] LABS: BASOPHILS PERCENT AUTO 0.3 % (0.1-1.3); EOSINOPHILS ABSOLUTE AUTO 0.04 K/uL (0.00-0.40); EOSINOPHILS PERCENT AUTO 0.5 % (0.0-5.4); IMMATURE GRAN ABSOLUTE AUTO 0.05 K/uL (0.00-0.23); IMMATURE GRAN PERCENT AUTO 0.6 % (0.0-0.7); LYMPHOCYTES ABSOLUTE AUTO 1.17 K/uL (0.8-3.3); LYMPHOCYTES PERCENT AUTO 14.9 % (11.4-47.7); MONOCYTES ABSOLUTE AUTO 0.47 K/uL (0.20-0.90); MONOCYTES PERCENT AUTO 6.0 % (3.3-12.6); NEUTROPHILS ABSOLUTE AUTO 6.12 K/uL (1.0-7.6); NEUTROPHILS PERCENT AUTO 77.7 % (40.0-78.1); PLATELET COUNT,PLT 176 K/uL (130-375); RED BLOOD CELL COUNT 3.92 M/uL (4.14-5.76); WHITE BLOOD CELL COUNT,WBC 7.9 K/uL (3.2-11.0)
[2025-04-04] MEDS: Iopamidol 612 MG/ML 100 ML Bottle IV PRN (11:56)
[2025-04-04 12:09] LABS: BASOPHILS ABSOLUTE AUTO 0.02 K/uL (0.00-0.10)
[2025-04-04 12:14] LABS: INR 1.0
[2025-04-04 12:18] LABS: A/G RATIO 0.9 (1.2-2.2); ALANINE AMINOTRANSFERASE,ALT 22 U/L (12-78); ASPARTATE AMNIOTRANSFERASE,AST 14 U/L (15-37); BILIRUBIN TOTAL 0.5 mg/dL (0.2-1.0); BLOOD UREA NITROGEN,BUN 19 mg/dL (7-18); CARBON DIOXIDE,CO2 27 mmol/L (21-32); CHLORIDE,CL 105 mmol/L (100-108); CREATININE 0.7 mg/dL (0.8-1.3); EST CRCL DRUG DOSING (CG) 80.54 mL/min; ESTIMATED GFR 97 mL/min (>60); GLUCOSE RANDOM 178 mg/dL (74-106); POTASSIUM,K 4.4 mmol/L (3.6-5.2); PROTEIN TOTAL,TP 5.7 g/dL (6.4-8.2); SODIUM,NA 137 mmol/L (140-148)
[2025-04-04 13:54] LABS: APPEARANCE,URINE CLEAR (CLEAR); GLUCOSE,URINE NEGATIVE (NEGATIVE); OCCULT BLOOD,URINE NEGATIVE (NEGATIVE)
[2025-04-04 14:18] VITALS: BP 107/68; PULSE 78
== END 2025-04-04 14:33 | disposition home or self-care (01) ==
LOC: JP.ED 10:53
DX: R53.1 Weakness (principal); R55 Syncope and collapse; K21.9 Gastro-esophageal reflux disease without esophagitis; F17.200 Nicotine dependence, unspecified, uncomplicated; Z79.899 Other long term (current) drug therapy; Z91.048 Other nonmedicinal substance allergy status
CPT/HCPCS: 36415; 74177; 80053; 81003; 83690; 85025; 85610; 93005; 93010; 96361; 96374; 99284; 99285; J2405; J7030; Q9967

== ENCOUNTER 2025-04-04 16:29 | Inpatient (IN) | payer MEDICARE ==
[2025-04-04 16:53] LABS: BASOPHILS PERCENT AUTO 0.3 % (0.1-1.3); EOSINOPHILS PERCENT AUTO 0.3 % (0.0-5.4); IMMATURE GRAN ABSOLUTE AUTO 0.05 K/uL (0.00-0.23); IMMATURE GRAN PERCENT AUTO 0.7 % (0.0-0.7); LYMPHOCYTES ABSOLUTE AUTO 1.17 K/uL (0.8-3.3); LYMPHOCYTES PERCENT AUTO 17.5 % (11.4-47.7); MONOCYTES ABSOLUTE AUTO 0.26 K/uL (0.20-0.90); MONOCYTES PERCENT AUTO 3.9 % (3.3-12.6); NEUTROPHILS ABSOLUTE AUTO 5.17 K/uL (1.0-7.6); NEUTROPHILS PERCENT AUTO 77.3 % (40.0-78.1); PLATELET COUNT,PLT 182 K/uL (130-375); RED BLOOD CELL COUNT 3.40 M/uL (4.14-5.76); WHITE BLOOD CELL COUNT,WBC 6.7 K/uL (3.2-11.0)
[2025-04-04 16:55] LABS: BASOPHILS ABSOLUTE AUTO 0.02 K/uL (0.00-0.10); EOSINOPHILS ABSOLUTE AUTO 0.02 K/uL (0.00-0.40)
[2025-04-04 17:15] LABS: A/G RATIO 1.0 (1.2-2.2); ALANINE AMINOTRANSFERASE,ALT 20 U/L (12-78); ASPARTATE AMNIOTRANSFERASE,AST 14 U/L (15-37); BILIRUBIN TOTAL 0.7 mg/dL (0.2-1.0); BLOOD UREA NITROGEN,BUN 31 mg/dL (7-18); CARBON DIOXIDE,CO2 24 mmol/L (21-32); CHLORIDE,CL 107 mmol/L (100-108); CREATININE 0.8 mg/dL (0.8-1.3); EST CRCL DRUG DOSING (CG) 70.47 mL/min; ESTIMATED GFR 93 mL/min (>60); GLUCOSE RANDOM 221 mg/dL (74-106); POTASSIUM,K 4.6 mmol/L (3.6-5.2); PROTEIN TOTAL,TP 5.3 g/dL (6.4-8.2); SODIUM,NA 138 mmol/L (140-148)
[2025-04-04] MEDS ORDERED: Dorzolamide/Timolol 2%-0.5% Ophth Soln 10 ML Bottle EYEBOTH SCH (21:09)
[2025-04-04] MEDS: Timolol Maleate 0.5% Ophth Soln 5 ML Bottle EYEBOTH SCH (22:49)
[2025-04-05 05:30] LABS: PLATELET COUNT,PLT 148.0 K/uL (130-375); RED BLOOD CELL COUNT 2.78 M/uL (4.14-5.76); WHITE BLOOD CELL COUNT,WBC 5.6 K/uL (3.2-11.0)
[2025-04-05] MEDS: Timolol Maleate 0.5% Ophth Soln 5 ML Bottle EYEBOTH SCH (08:44)
[2025-04-05] MEDS ORDERED: Propofol 200 MG/20 ML SDV ONE ×3 (11:39→12:42)
[2025-04-05] MEDS ORDERED: Phenylephrine 1% 10 MG/ML SDV ONE (12:17)
[2025-04-05] MEDS ORDERED: Succinylcholine 200 MG/10 ML MDV ONE (12:29)
[2025-04-05] MEDS: Ondansetron 4 MG/2 ML SDV IV PRN (14:45)
[2025-04-05] MEDS: Acetaminophen 1,000 MG in Premix Bag 1 BAG IV ONE (18:31)
[2025-04-05 23:21] LABS: BASOPHILS PERCENT AUTO 0.1 % (0.1-1.3); EOSINOPHILS PERCENT AUTO 0.1 % (0.0-5.4); IMMATURE GRAN ABSOLUTE AUTO 0.07 K/uL (0.00-0.23); IMMATURE GRAN PERCENT AUTO 0.6 % (0.0-0.7); LYMPHOCYTES ABSOLUTE AUTO 2.26 K/uL (0.8-3.3); LYMPHOCYTES PERCENT AUTO 19.7 % (11.4-47.7); MONOCYTES ABSOLUTE AUTO 0.70 K/uL (0.20-0.90); MONOCYTES PERCENT AUTO 6.1 % (3.3-12.6); NEUTROPHILS ABSOLUTE AUTO 8.45 K/uL (1.0-7.6); NEUTROPHILS PERCENT AUTO 73.4 % (40.0-78.1); PLATELET COUNT,PLT 133 K/uL (130-375); RED BLOOD CELL COUNT 2.29 M/uL (4.14-5.76); WHITE BLOOD CELL COUNT,WBC 11.5 K/uL (3.2-11.0)
[2025-04-05 23:22] LABS: BASOPHILS ABSOLUTE AUTO 0.01 K/uL (0.00-0.10); EOSINOPHILS ABSOLUTE AUTO 0.01 K/uL (0.00-0.40)
[2025-04-06] MEDS: Sodium Chloride 0.9% 10 ML Syringe FLUSH PRN (02:36)
[2025-04-06] MEDS: Iopamidol 755 Mg/ML 100 ML Bottle IV SCH (02:36)
[2025-04-06] MEDS: fentaNYL 50 MCG/ML SDV IVPUSH PRN (06:25)
[2025-04-06 07:43] LABS: PLATELET COUNT,PLT 114.0 K/uL (130-375); RED BLOOD CELL COUNT 2.46 M/uL (4.14-5.76); WHITE BLOOD CELL COUNT,WBC 14.4 K/uL (3.2-11.0)
[2025-04-06 07:58] LABS: BLOOD UREA NITROGEN,BUN 53.0 mg/dL (7-18); CARBON DIOXIDE,CO2 18.0 mmol/L (21-32); CHLORIDE,CL 119.0 mmol/L (100-108); CREATININE 1.2 mg/dL (0.8-1.3); EST CRCL DRUG DOSING (CG) 46.98 mL/min; ESTIMATED GFR 63.0 mL/min (>60); GLUCOSE RANDOM 249.0 mg/dL (74-106); POTASSIUM,K 3.7 mmol/L (3.6-5.2); SODIUM,NA 148.0 mmol/L (140-148)
[2025-04-06 11:15] VITALS: BP 103/59; PULSE 97
== END 2025-04-06 11:45 | DRG 379 ==
LOC: JP.ED 16:29 → JP.MS 19:48 → JP.ICU 04-05 10:37 → JP.MS 04-05 10:37 → UNDODISIN 04-06 11:45
PROVIDERS: ADMIT Internal Medicine; ATTEND Internal Medicine
PROC: 30233N1 Transfusion of Nonautologous Red Blood Cells into Peripheral Vein, Percutaneous Approach (ICD-10-PCS; principal; 2025-04-04)
PROC: 30233K1 Transfusion of Nonautologous Frozen Plasma into Peripheral Vein, Percutaneous Approach (ICD-10-PCS; 2025-04-04)
PROC: 0D9670Z Drainage of Stomach with Drainage Device, Via Natural or Artificial Opening (ICD-10-PCS; 2025-04-04)
DX: R55 Syncope and collapse (principal); K92.1 Melena; E11.9 Type 2 diabetes mellitus without complications; E86.0 Dehydration; H54.7 Unspecified visual loss; K21.9 Gastro-esophageal reflux disease without esophagitis; E66.9 Obesity, unspecified; M54.9 Dorsalgia, unspecified; G89.29 Other chronic pain; I95.9 Hypotension, unspecified; M06.9 Rheumatoid arthritis, unspecified; M19.90 Unspecified osteoarthritis, unspecified site; Z96.653 Presence of artificial knee joint, bilateral; Z96.642 Presence of left artificial hip joint; Z96.612 Presence of left artificial shoulder joint; D50.9 Iron deficiency anemia, unspecified; Z68.35 Body mass index [BMI] 35.0-35.9, adult; Z98.49 Cataract extraction status, unspecified eye; Z98.890 Other specified postprocedural states; Z79.899 Other long term (current) drug therapy; Z88.8 Allergy status to other drugs, medicaments and biological substances; Z68.36 Body mass index [BMI] 36.0-36.9, adult
CPT/HCPCS: 00731-QZ; 36415; 36430; 74018; 74018-26; 74174; 74177; 80048; 80053; 81003; 82272; 82947; 83605; 83690; 85014; 85018; 85025; 85027; 85610; 86850; 86900; 86901; 86920; 86922; 87040; 93005; 93010; 96361; 96374; 99223; 99239; 99284; 99285-25; 99291; A9270-GY; J0131; J0330; J2371; J2405; J2470; J2543; J2704; J3010; J7030; P9016; P9017; Q9967